=== PATIENT | male | born 1960 | race Caucasian/White ===

== ENCOUNTER 2016-10-14 19:01 | Emergency (ER) | payer OTHER ==
--- NOTE | 2016-10-14 21:17 | UC ---
Shoulder Pain HPI - HPI Summary HPI Summary: 4 DAYS OF INTERMITTENT LEFT POSTERIOR SHOULDER/UPPER BACK PAIN. INTENSE, SHARP, STABBING PAIN. LASTS A FEW SECONDS THEN HAS RECURRENT EPISODES EVERY FEW MINUTES FOR 20-40 MINUTES. NO APPARENT TRIGGERS. WILL OCCUR AT REST, WAKE HIM FROM SLEEP. HAS FULL ROM. NO TRAUMA. NO CP, SOB, NAUSEA OR SWEATS. NO PARESTHESIAS - History of Current Complaint Chief Complaint: UCUpperExtremity Stated Complaint: SHOULDER PAIN Time Seen by Provider: 10/14/16 20:46 Hx Obtained From: Patient Onset/Duration: Sudden Onset, Lasting Days, Still Present Timing: Seconds Severity Initially: Moderate Location Of Pain: Is Discrete @ - LEFT UPPER BACK/POSTERIOR SHOULDER Pain Intensity: 9 Pain Scale Used: 0-10 Numeric Character: Sharp Aggravating Factor(s): Nothing Associated Signs And Symptoms: Negative: Swelling, Redness, Weakness, Numbness/ Tingling - Allergies/Home Medications Allergies/Adverse Reactions: Allergies Allergy/AdvReac Type Severity Reaction Status Date / Time No Known Allergies Allergy Verified 10/14/16 19:14 Home Medications: Home Medications Aspirin [Aspirin 81 MG TAB] 81 mg PO DAILY 10/14/16 [History Confirmed 10/14/16] Cholecalciferol [Vitamin D] 2,000 unit PO DAILY 10/14/16 [History Confirmed 08/28] Cyanocobalamin [Vitamin B-12] 2,000 mcg PO DAILY 10/14/16 [History Confirmed 08/28] Escitalopram Oxalate [Lexapro] 15 mg PO DAILY 10/14/16 [History Confirmed ] Multiple Vitamin [Multi Vitamin] 1 tab PO DAILY 10/14/16 [History Confirmed 08/28] Rangely-3 Fatty Acids [Fish Oil] 2,000 mg PO DAILY 10/14/16 [History Confirmed 08/28] Terbinafine HCl [Lamisil] 250 mg PO DAILY 10/14/16 [History Confirmed 10/14/16] buPROPion SR TAB* [Wellbutrin SR TAB*] 150 mg PO DAILY 10/14/16 [History Confirmed 10/14/16] PMH/Surg Hx/FS Hx/Imm Hx Previously Healthy: Yes Endocrine History Of: Denies: Diabetes, Thyroid Disease Cardiovascular History Of: Denies: Cardiac Disorders, Hypertension Respiratory History Of: Denies: COPD - Surgical History Surgical History: Yes Surgery Procedure, Year, and Place: Apppendectomy and tonsilectomy - Family History Family History: DAD WAS ALCOHOLIC - LIVER DISEASE - Social History Alcohol Use: None Substance Use Type: None Smoking Status (MU): Former Smoker Review of Systems Constitutional: Negative Skin: Negative Respiratory: Negative Cardiovascular: Negative Gastrointestinal: Negative Musculoskeletal: Myalgia All Other Systems Reviewed And Are Negative: Yes Physical Exam Triage Information Reviewed: Yes Appearance: Well-Appearing, No Pain Distress, Well-Nourished Vital Signs: Initial Vital Signs Temp 97.7 F 10/14/16 19:09 Pulse 58 10/14/16 19:09 Resp 16 10/14/16 19:09 BP 119/71 10/14/16 19:09 Pulse Ox 97 10/14/16 19:09 Vital Signs Reviewed: Yes Eyes: Positive: Conjunctiva Clear ENT: Positive: Hearing grossly normal Neck: Positive: Supple Respiratory Exam: Normal Cardiovascular Exam: Normal Abdomen Description: Positive: Soft Musculoskeletal: Positive: ROM Intact, No Edema, Other: - NO TTP Neurological: Positive: Alert Psychological: Positive: Age Appropriate Behavior Skin: Negative: rashes Diagnostics - Radiology CXR Xray Interpretation: No Acute Changes Radiology Interpretation Completed By: Radiologist Shoulder Course/Dx - Differential Dx/Diagnosis Provider Diagnoses: LEFT SHOULDER PAIN Discharge - Discharge Plan Condition: Stable Disposition: HOME Prescriptions: Cyclobenzaprine TAB* [Flexeril TAB*] 10 mg PO BID PRN #20 tab PRN Reason: Pain Patient Education Materials: Shoulder Pain (ED) Referrals: No Primary Care Phys,NOPCP [Primary Care Provider] - Additional Instructions: CHEST XRAY UNREMARKABLE. UNCLEAR ETIOLOGY OF YOUR SYMPTOMS. TRY FLEXERIL AT NIGHT AND IBUPROFEN DURING THE DAY TO SEE IF IT LESSENS YOUR SYMPTOMS. FOLLOW- UP WITH YOUR PCP DR. JONES WITHIN THE NEXT 1 WEEK. GO TO THE ER WITHOUT FAIL IF YOUR SYMPTOMS WORSEN OR YOU DEVELOP CHEST PAIN, SHORTNESS OF BREATH, NAUSEA, SWEATS, DIZZINESS OR ANY OTHER CONCERNING SYMPTOMS.
--- NOTE | 2016-10-14 21:29 | RAD ---
INDICATION: Back pain. COMPARISON: There are no prior studies available for comparison. TECHNIQUE: Dual-energy PA and lateral views of the chest were obtained. FINDINGS: The heart is within normal limits in size. Mediastinal and hilar contours appear within normal limits. The lungs are clear. No pleural effusion or pneumothorax is seen. 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 IMPRESSION: NO EVIDENCE FOR ACTIVE CARDIOPULMONARY DISEASE.
[2016-10-14] MEDS ORDERED: Cyclobenzaprine TAB* 10 MG PO ONE (21:34)
[2016-10-14 21:47] VITALS: BP 131/83
== END 2016-10-14 21:47 | disposition home or self-care (01) ==
LOC: UCEAST 19:01
DX: M25.512 Pain in left shoulder (principal); Z87.891 Personal history of nicotine dependence
CPT/HCPCS: 71020; 93005; 99212; A9270-GY; G0463